=== PATIENT | male | born 1995 | race Caucasian/White ===

== ENCOUNTER 2021-07-01 08:16 | Emergency (ER) | payer OTHER, MEDICAID, SELFPAY ==
--- NOTE | ~2021-07-01 | US_ITS ---
EXAMINATION:US venous doppler LE LT INDICATION:Left leg pain TECHNIQUE: Multiple grayscale, color flow and Doppler images of the left lower extremity deep venous systems were obtained and reviewed. COMPARISON:No prior studies for comparison. FINDINGS: The common femoral, superficial femoral and popliteal veins demonstrate normal respiratory variation, augmentation and compressibility. Color flow is also seen within the posterior tibial, pe roneal, greater saphenous and profunda veins. IMPRESSION: 1: No lower extremity deep venous thrombosis. Reviewed, dictated and finalized at location A.
--- NOTE | ~2021-07-01 | XR_ITS ---
EXAMINATION: XR hip LT 2V w AP pelvis DATE: 07/01/2021 09:21 INDICATION: Left hip pain TECHNIQUE: Anteroposterior view of the pelvis and anteroposterior and frog-leg lateral views of the l eft hip were obtained. COMPARISON: None. FINDINGS: Alignment is normal. No fracture. Joint spaces are normal. Small phlebolith in the right hemipelvis. Soft tissues are unremarkable. IMPRESSION: 1. Negative left hip and pelvis radiographs. Reviewed, dictated and finalized at location A.
[2021-07-01 08:35] VITALS: BP 156/100; PULSE 111; RESP 20; TEMP 36.6; O2SAT 98
--- NOTE | 2021-07-01 09:10 | ED.GENADULT ---
HPI - General Adult General Chief complaint: Extremity Injury, Lower Stated complaint: left thigh pain Time Seen by Provider: 07/01/21 09:03 History of Present Illness HPI narrative: Patient with 26-year-old gentleman who presents the emergency department chief complaint of left thigh pain. Patient states for the last 3 days he said pain in the left inguinal area patient states the pain is worse with movement and improved with rest. Patient denies swelling denies trauma states that he is a type II diabetic and has not been taking medications for some time as he does not have a doctor currently patient denies fever denies chills reports that when he was a child he had fluid on his left hip in the past. Related Data Allergies Allergy/AdvReac Type Severity Reaction Status Date / Time No Known Allergies Allergy Verified 07/01/21 08:40 Review of Systems Review of Systems: A 10 system review of systems was completed on the patient and is negative except for what is stated in the HPI. Nursing and ancillary documentation was reviewed. Exam Narrative: GENERAL: Well-appearing, well-nourished, and in no acute distress. HEAD: Normocephalic, atraumatic. EYES: PERRLA and EOMI. ENT: Nares clear, no rhinorrhea or epistaxis. Mucous membranes moist. NECK: Supple. CHEST: Clear to auscultation. No respiratory distress. HEART: Regular rate and rhythm. No murmur heard. Normal peripheral pulses. ABDOMEN: Soft, nontender, nondistended, normal active bowel sounds. EXTREMITIES: Decreased range of motion of the left hip there is tenderness to palpation in the left inguinal region. No edema. SKIN: Warm, dry, no rash. NEURO: No focal deficits. Alert and oriented x3. PSYCH: Normal mood and affect. Course Vital Signs Vital signs: Vital Signs Temperature 36.6 C 07/01/21 08:35 Pulse Rate 111 H 07/01/21 08:35 Respiratory Rate 20 07/01/21 08:35 Blood Pressure 156/100 H 07/01/21 08:35 Pulse Oximetry 98 07/01/21 08:35 Temperature 36.6 C 07/01/21 08:35 Pulse Rate 111 H 07/01/21 08:35 Respiratory Rate 20 07/01/21 08:35 Blood Pressure 156/100 H 07/01/21 08:35 Pulse Oximetry 98 07/01/21 08:35 Medical Decision Making Vital Signs Vital Signs: Vital Signs Temperature 36.6 C 07/01/21 08:35 Pulse Rate 111 H 07/01/21 08:35 Respiratory Rate 20 07/01/21 08:35 Blood Pressure 156/100 H 07/01/21 08:35 Pulse Oximetry 98 07/01/21 08:35 Temperature 36.6 C 07/01/21 08:35 Pulse Rate 111 H 07/01/21 08:35 Respiratory Rate 20 07/01/21 08:35 Blood Pressure 156/100 H 07/01/21 08:35 Pulse Oximetry 98 07/01/21 08:35 Lab Data Result diagrams: 07/01/21 09:44 07/01/21 09:44 Labs: Lab Results 07/01/21 07/01/21 Range/Units 09:44 09:44 WBC 7.5 (4.5-10.0) K/mm3 RBC 5.06 (4.6-6.20) M/mm3 Hgb 16.8 (14.0-18.0) g/dL Hct 50.3 (42.0-52.0) % MCV 99.4 (80-100) fl MCH 33.2 (26-34) pg MCHC 33.4 (32-36) g/dl RDW 12.8 (11.5-14.5) % Plt Count 234 (150-375) k/mm3 MPV 9.1 (7.4-10.4) fl Immature Gran % (Auto) 1.1 H (0-0.5) % Neut % (Auto) 60.6 (45.5-73.1) % Lymph % (Auto) 23.6 (18.3-44.2) % [place] % (Auto) 10.7 H (2.6-8.5) % Eos % (Auto) 3.1 (0-4.4) % Baso % (Auto) 0.9 (0.2-1.2) % Lymph # (Auto) 1.78 (0.9-3.2) K/mm3 [place] # (Auto) 0.8 H (0.1-0.6) K/mm3 Eos # (Auto) 0.2 (0-0.3) K/mm3 Baso # (Auto) 0.1 (0.0-0.1) K/mm3 Abs Immat Gran (auto) 0.08 H (0.00-0.031) K/mm3 Absolute Neuts (auto) 4.6 (1.3-6.7) K/mm3 Absolute Nucleated RBC 0.0 (0.0-0.012) K/mm3 Nucleated RBC % 0.0 (0.0-0.2) % Sodium 140 (137-145) mmol/L Potassium 4.2 (3.4-5.0) mmol/L Chloride 102 (98-107) mmol/L Carbon Dioxide 27 (22-30) mmol/L Anion Gap 11 (8-16) mmol/L BUN 13 (9-20) mg/dL Creatinine 0.80 (0.7-1.3) mg/dL Estim Creat Clear Calc 194 ml/min Estimated GFR > 60 (59 - ) Glucose 1
[2021-07-01] MEDS: KETOROLAC 30 MG/ML VIAL (*BKC) IM (10:01)
[2021-07-01 10:03] LABS: Basophils Absolute Auto 0.1 K/mm3 (0.0-0.1); Basophils Percent Auto 0.9 % (0.2-1.2); Eosinophils Absolute Auto 0.2 K/mm3 (0-0.3); Eosinophils Percent Auto 3.1 % (0-4.4); Hematocrit 50.3 % (42.0-52.0); Hemoglobin 16.8 g/dL (14.0-18.0); Immature Granulocyte Absolute 0.08 K/mm3 (0.00-0.031); Immature Granulocyte Percent A 1.1 % (0-0.5); Lymphocytes Absolute Auto 1.78 K/mm3 (0.9-3.2); Lymphocytes Percent Auto 23.6 % (18.3-44.2); Mean Corpuscular HGB Conc 33.4 g/dl (32-36); Mean Corpuscular Hemoglobin 33.2 pg (26-34); Mean Corpuscular Volume 99.4 fl (80-100); Mean Platelet Volume 9.1 fl (7.4-10.4); Monocytes Absolute Auto 0.8 K/mm3 (0.1-0.6); Monocytes Percent Auto 10.7 % (2.6-8.5); Neutrophils Absolute Auto 4.6 K/mm3 (1.3-6.7); Neutrophils Percent Auto 60.6 % (45.5-73.1); Platelet Count Result 234 k/mm3 (150-375); Red Blood Count 5.06 M/mm3 (4.6-6.20); Red Cell Distribution Width 12.8 % (11.5-14.5); White Blood Count 7.5 K/mm3 (4.5-10.0)
[2021-07-01 10:16] LABS: Alanine Aminotransferase 76 U/L (4-50); Albumin Level 4.5 g/dL (3.5-5.1); Alkaline Phosphatase 62 U/L (38-126); Anion Gap 11 mmol/L (8-16); Aspartate Amino Transferase 68 U/L (17-59); Bilirubin,Total 0.9 mg/dL (0.2-1.3); Blood Urea Nitrogen 13 mg/dL (9-20); Calcium 9.2 mg/dL (8.4-10.2); Carbon Dioxide 27 mmol/L (22-30); Chloride 102 mmol/L (98-107); Estimated CRCL calculation 194 ml/min; Estimated Glomerular Filt Rate > 60; Glucose 135 mg/dL (65-110); Magnesium 2.2 mg/dL (1.6-2.3); Potassium 4.2 mmol/L (3.4-5.0); Sodium 140 mmol/L (137-145)
[2021-07-01 10:47] VITALS: BP 160/98; PULSE 102; RESP 19; O2SAT 97
== END 2021-07-01 10:48 | disposition home or self-care (01) ==
PROVIDERS: Emergency Provider Emergency Medicine
DX: M25.552 Pain in left hip (principal); E11.9 Type 2 diabetes mellitus without complications; Z91.14 Patient's other noncompliance with medication regimen
CPT/HCPCS: 36415; 73502; 80053; 83735; 85025; 93971; 96372; 99284; J1885

== ENCOUNTER 2021-09-09 10:25 | Outpatient (CLI) | payer BC, SELFPAY ==
[2021-09-09 11:15] LABS: Alanine Aminotransferase 93 U/L (4-50); Albumin Level 4.6 g/dL (3.5-5.1); Alkaline Phosphatase 72 U/L (38-126); Anion Gap 9 mmol/L (8-16); Aspartate Amino Transferase 65 U/L (17-59); Bilirubin,Total 0.6 mg/dL (0.2-1.3); Blood Urea Nitrogen 9 mg/dL (9-20); Calcium 9.3 mg/dL (8.4-10.2); Carbon Dioxide 26 mmol/L (22-30); Chloride 103 mmol/L (98-107); Cholesterol 206 mg/dL (0-200); Estimated Glomerular Filt Rate > 60; Glucose 138 mg/dL (65-110); HDL Direct 43 mg/dL; Potassium 4.3 mmol/L (3.4-5.0); Sodium 138 mmol/L (137-145); Triglycerides 260 mg/dL (<150)
[2021-09-09 11:16] LABS: Hemoglobin A1C 6.1 % (<5.7)
[2021-09-09 11:27] LABS: LDL Cholesterol Direct 135 mg/dL
[2021-09-09 11:42] LABS: Free T4 Free Thyroxine 1.02 ng/mL (0.78-2.19)
== END 2021-09-09 10:26 | disposition home or self-care (01) ==
LOC: ANHLAB 10:27
PROVIDERS: PCP Internal Medicine; Visit Provider Nurse Practitioner
DX: E11.9 Type 2 diabetes mellitus without complications (principal); E03.9 Hypothyroidism, unspecified
CPT/HCPCS: 36415; 80053; 80061; 83036; 84439; 84443

== ENCOUNTER 2021-10-28 11:24 | Outpatient (CLI) | payer BC, SELFPAY ==
--- NOTE | ~2021-10-28 | US_ITS ---
EXAMINATION: US abdomen limited EXAM DATE: 10/28/2021 12:00 INDICATION: Please do US of liver. abn liver function test . TECHNIQUE: Multiple grayscale and Doppler images of the abdomen right upper quadrant were obtained (b y a technologist who performed the scan) and subsequently reviewed. There is no prior study for jennifer epps. FINDINGS: The pancreatic head and body are normal in appearance. The pancreatic tail is not visualized. There is echogenic liver parenchyma with poor penetration, hepatic steatosis. There are no focal liver le sions identified. There is no evidence of intrahepatic biliary duct dilation. Portal venous flow w as seen in the hepatopedal, normal direction and has normal Doppler waveform. No right-sided hydrone phrosis. Common bile duct measures 5 mm, which is normal. The gallbladder wall is normal in thickness, with ex pected amount of distention. No sonographic evidence of pericholecystic fluid. There is no cholelit hiases. Technologist performing exam reports patient did not demonstrate sonographic Guzmán's sign. Please note that this sign is less reliable in patients who have received pain medication. IMPRESSION: 1. Hepatic steatosis. Reviewed, dictated and finalized at location A. [employer] IMPRESSION: 1. Hepatic steatosis.
== END 2021-10-28 11:25 | disposition home or self-care (01) ==
LOC: ANHIMG 11:27
PROVIDERS: PCP Internal Medicine; Visit Provider Nurse Practitioner
DX: R79.89 Other specified abnormal findings of blood chemistry (principal); K76.0 Fatty (change of) liver, not elsewhere classified
CPT/HCPCS: 76705

== ENCOUNTER 2022-09-17 07:30 | Emergency (ER) | payer BC, SELFPAY ==
--- NOTE | ~2022-09-17 | XR_ITS ---
XR femur LT min 2V DATE: 09/17/2022 08:36 INDICATION: Left mid thigh pain TECHNIQUE: AP and lateral views of left femur COMPARISON: None FINDINGS: No fracture or dislocation, periosteal reaction or bone destruction of the left femur. Norm al alignment and preservation of joint spaces at the left hip and left knee. IMPRESSION: Negative Reviewed, dictated and finalized at location B. M OVEN OPERATOR IMPRESSION: Negative
--- NOTE | ~2022-09-17 | XR_ITS ---
XR hip LT 2V w AP pelvis DATE: 09/17/2022 08:36 INDICATION: Left hip and mid thigh pain TECHNIQUE: AP pelvis. AP, lateral views of left hip COMPARISON: None FINDINGS: No pelvic fracture or bone destruction. The pubic symphysis and sacroiliac joints are intac t. Hip joint spaces are symmetric and well preserved. No fracture or dislocation, avascular necrosis or bone destruction of the left hip. IMPRESSION: Negative Reviewed, dictated and finalized at location B. ONHOLE MAKER HAND IMPRESSION: Negative
[2022-09-17 07:36] VITALS: BP 142/81; PULSE 101; RESP 18; TEMP 36.4; O2SAT 97
--- NOTE | 2022-09-17 08:03 | ED.EXTPRO ---
HPI - Extremity Problem General Chief complaint: Extremity Problem,Nontraumatic Stated complaint: left thigh pain Time Seen by Provider: 09/17/22 07:58 Source: patient and RN notes reviewed History of Present Illness HPI Narrative: 27 years old white male, came by private car complaining of pain at the mid left thigh started 2 weeks ago, did not take any medication yet. Patient denies any trauma. Patient had similar history 1 year ago and got better on Flexeril. Unknown etiology. He denies any fevers chills nausea vomiting. Gets worse with certain movement of the left lower extremity, better at rest, not painful with palpation. Patient is telling me that he ran out of metformin and currently in between physicians. Related Data Allergies Allergy/AdvReac Type Severity Reaction Status Date / Time No Known Allergies Allergy Verified 09/17/22 07:31 Review of Systems Review of Systems: All systems reviewed & are unremarkable except as noted in HPI and below PMFSH Past Medical History Medical History Adult hypothyroidism LAISHA (obstructive sleep apnea) Type 2 diabetes mellitus Surgical History Surgical History History of tonsillectomy Family History Family History Father Alcohol abuse Depression Mother Depression Cerebrovascular accident Heart disease Lupus White matter disease Social History Social History Smoking packs per day: 0.5 Smoking cigarettes per day: 10.0 Years smoked: 10 Smoking pack-years: 5.00 Tobacco type: cigarettes Alcohol intake: current Alcohol use details: socially Substance use: current Substance use type: marijuana Additional occupation/education comments: in trade school for [employer] Exam Narrative: General appearance: Well-developed, well-nourished Skin: Normal color Head: Normocephalic, nontraumatic Eyes: Clear conjunctiva ENT: Oropharynx normal, ears normal, nose normal Neck: Supple, nontender Chest and respiratory: Airway patent, no respiratory distress, no accessory muscle use Heart: Regular rate/rhythm Abdomen: Soft, nontender, no organomegaly, quiet bowel sounds Vascular: Normal peripheral pulses, normal capillary refill. Musculoskeletal: Normal range of motion, nontender back Neurologic: Alert and oriented ?3, THERMOSTAT MECHANIC is normal as tested, no gross motor deficit Course Vital Signs Vital signs: Vital Signs Temperature 36.4 C L 09/17/22 07:36 Pulse Rate 101 H 09/17/22 07:36 Respiratory Rate 18 09/17/22 07:36 Blood Pressure 142/81 H 09/17/22 07:36 Pulse Oximetry 97 09/17/22 07:36 Oxygen Delivery Room Air 09/17/22 07:36 Temperature 36.4 C L 09/17/22 07:36 Pulse Rate 101 H 09/17/22 07:36 Respiratory Rate 18 09/17/22 07:36 Blood Pressure 142/81 H 09/17/22 07:36 Pulse Oximetry 97 09/17/22 07:36 Oxygen Delivery Room Air 09/17/22 07:36 MDM - Extremity (Nontraumatic) Imaging Data Radiologist's impression: Impressions Hip/Pelvis X-Ray 09/17/22 08:43 IMPRESSION: Negative Femur X-Ray 09/17/22 08:45 IMPRESSION: Negative Critical Care Time Critical Care Time Critical Care Time: No Discharge Plan Discharge Clinical Impression: Muscle pain, Type 2 diabetes mellitus Patient Disposition: Home, Self-Care Condition: Stable Instructions: Antibiotic Form, Leg Pain (ED), Type 2 Diabetes in the Older Adult (ED) Additional Instructions: Return if symptoms are worsening , call your family
== END 2022-09-17 09:15 | disposition home or self-care (01) ==
PROVIDERS: Emergency Provider Emergency Medicine; PCP Internal Medicine
DX: M79.18 Myalgia, other site (principal); E11.9 Type 2 diabetes mellitus without complications; E03.9 Hypothyroidism, unspecified; G47.33 Obstructive sleep apnea (adult) (pediatric); F17.210 Nicotine dependence, cigarettes, uncomplicated; Z79.84 Long term (current) use of oral hypoglycemic drugs
CPT/HCPCS: 73502; 73552; 99284

== ENCOUNTER 2023-06-07 15:18 | Emergency (ER) | payer BC, OTHER, SELFPAY ==
[2023-06-07 16:01] VITALS: BP 134/79; PULSE 91; RESP 18; TEMP 36.3; O2SAT 98
--- NOTE | 2023-06-07 18:12 | PC.NURSE ---
patient called from waiting room at 1801 and 1811 with no answer. patient left without being seen
== END 2023-06-07 18:11 | disposition left against medical advice (07) ==
DX: M79.661 Pain in right lower leg (principal)
CPT/HCPCS: 99199

== ENCOUNTER 2025-08-22 13:38 | Emergency (ER) | payer OTHER, SELFPAY ==
--- OUTSIDE RECORDS SUMMARY | 2005-11-01 02:22 | XMS_ITS | Continuity of Care Document ---
Author Organization [facility] Address [address] [facility] [place] [address] Phone Care Team Providers Care Electrician Wiring Name Role Phone Michael Falk Jr, MD Unavailable Unavailabl e Medications Medication Instructions Dosage Effective Dates (start - stop) Status Comments amoxicillin 250 mg/5 mL Oral Susp 1 TSP PO TID X 10 - Active DYTAN-CS 30-7.5-25ORAL SUSP 1 TSP PO BID PRN COUGH OR CONGESTION - Active Zoloft 25 mg Tab Take one tablet by mouth daily - Active Concerta 54 mg 24 hr Tab Take one tablet by mouth daily - Active Methylin 5 mg Tab As Directed - Active Combivent 18 mcg-103 mcg/Actuation Aerosol Inhaler Inhale two times by mouth every eight hours - Active FLOVENT 44MCGAER W/ADAP 4 puffs BID - Active Advance Directives Directive Yes / No Effective Date File Name No Information Encounters Encounter Description Practice Location Reason(s) For Visit Diagnoses Date Provider Providers Copied on Encounter [facility], [address] [facility] [place], [id number], [place] tel:[phone] [facility] Information Deya Rodriguez. [address] [facility] [place], [id number], [place]. tel:[phone] [facility], [address] [facility] [place], [id number], [place] tel:[phone] [facility] cough (chief complaint)s ore throat (chief complaint) No Information Elizabet YUE Tripp. [address] [facility] [place], [id number], [place]. tel:[phone] [facility], [address] [facility] [place], [id number], [place] tel:[phone] [facility] L eye redness/swe lling (chief complaint) No Information No Information [facility], [address] [place] [address] [place]onso, , [id number], [place] tel:[phone] [facility] No Information Deya Rodriguez. [address] [facility] [place] [id number], [place]. tel:[phone] [facility], [address] [place] [address] [place], [id number], [place] tel:[phone] [facility] add (chief complaint)a sthma (chief complaint) No Information [facility]ya Rodriguez. [address] [facility] , [id number], [place]. [phone] Family History Family Member Type Diagnosis Age At Onset No Information Payers Payer name Insurance type Covered alliance party ID Authoriza tion(s) No Information Social History Type Description Quantity Date Captured Comments Sex Male Smoking Status No Information Chief Complaint And Reason For Visit No Information Reason For Referral Reason For Referral No Information History Of Present Illness Encounter Date Complaint History Of Prese nt Illness No Information Functional Status Date Functional Assessmen t No Information Instructions Date Instruction Additional Infor mation No Information Assessments Type Assessment Date No Information Patient Care Teams Name Effective Dates (start - stop) Status Members No Information
--- OUTSIDE RECORDS SUMMARY | 2005-11-01 02:22 | XMS_ITS | Continuity of Care Document ---
Author Organization [facility] Address [address] [facility] [place] [address] Phone Care Team Providers Care Boat Ride Operator Name Role Phone Michael Falk Jr, MD [...] Diagnoses Date Provider Providers Copied on Encounter [facility], [address] [facility] [place], [id number], [place] tel:[phone] [facility] Information Deya Rodriguez. [address] [facility] [place], [id number], [place]. tel:[phone] [facility], [address] [facility] [place], [id number], [place] tel:[phone] [facility] cough (chief complaint)s ore throat (chief complaint) No Information Elizabet YUE Tripp. [address] [facility] [place], [id number], [place]. tel:[phone] [facility], [address] [facility] [place], [id number], [place] tel:[phone] [facility] L eye redness/swe lling (chief complaint) No Information No Information [facility], [address] [place] [address] [place]onso, , [id number], [place] tel:[phone] [facility] No Information [facility] Rodriguez. [address] [facility] [place], [id number], [place]. tel:[phone] [facility], [address] [place] [address] [place], [id number], [place] tel:[phone] [facility] add (chief complaint)a sthma (chief complaint) No Information Deya Rodriguez. [address] [facility] , [id number], [place]. [phone] Family History Family Member Type Diagnosis Age [...]
[2025-08-22 13:44] VITALS: BP 167/81; PULSE 91; RESP 20; TEMP 36.6; O2SAT 94
[2025-08-22 14:24] LABS: EDSTREPNEGPOS1 Negative (Negative)
--- NOTE | 2025-08-22 14:28 | ED.URI ---
HPI - URI/Sore Throat General Chief Complaint: Upper Respiratory Infection Stated Complaint: sore throat/ear Time Seen by Provider: 08/22/25 14:22 Source: patient and RN notes reviewed Mode of arrival: ambulatory Limitations: no limitations History of Present Illness HPI Narrative: 30-year-old male patient with history of hypothyroidism and diabetes presents today a 3 day history of sore throat and right ear pain that developed today. Denies fever, shortness breath. He has been taking Robitussin home with some mild relief and currently rates his pain 6/10. Does report a sick contact with his nephew that has an ear infection. Related Data Home Medications ?Medication ?Instructions ?Recorded ?Confirmed ?Last Taken ?Type lamotrigine 100 mg tablet mg 08/22/25 Unknown History Allergies Allergy/AdvReac Type Severity Reaction Status Date / Time pollen extracts Allergy Sneezing Verified 08/22/25 13:42 [facility] Past Medical History Medical History LAISHA (obstructive sleep apnea) Adult hypothyroidism Type 2 diabetes mellitus Surgical History Surgical History History of tonsillectomy Family History Family History Father Alcohol abuse Depression Mother Depression Cerebrovascular accident Heart disease Lupus White matter disease Social History Social History Smoking packs per day: 0.5 Smoking cigarettes per day: 10.0 Years smoked: 10 Smoking pack-years: 5.00 Tobacco type: cigarettes Smoking end date: 04/14/24 Alcohol intake: current Alcohol use details: socially Substance use: current Substance use type: marijuana Lack of Transportation: No Lack of Food: Sometimes True Current Housing: I Have Housing Concerned About Future Housing: No Difficulty Paying Gas/Electric Bills: No Difficulty Paying for Meds: No Currently Unemployed: No Education: High School Diploma/GED Difficulty w/ Childcare or Family Care: No Living arrangements: with family Occupation/Education: unemployed Additional occupation/education comments: in trade school for [employer] Comments At time of signature, I have reviewed and agree with nursing past medical, surgical, social and family history unless otherwise noted. Please see nursing chart for further information. There is no relevant family history pertinent to the presenting complaint Exam Narrative: GENERAL: Well-appearing, well-nourished, and in no acute distress. HEAD: Normocephalic, atraumatic. EYES: EOMI. No redness or drainage. Conjunctivae normal. ENT: Mucous membranes pink and moist. Nares congested. No rhinorrhea. TMs normal bilaterally. Throat erythematous and mildly edematous without exudate. Uvula midline. NECK: Normal AROM. Supple. Bilateral anterior cervical chain lymphadenopathy. CHEST: No respiratory distress. Clear to auscultation. HEART: Regular rate and rhythm. No murmur appreciated. EXTREMITIES: Normal range of motion. No edema. SKIN: Warm, dry, no rash. Capillary refill normal. Normal skin turgor. NEURO: No focal deficits. Alert and oriented x3. Gait steady. PSYCH: Normal affect. No signs of depression or anxiety. Course Course Level of Care: Express Care Visit Vital Signs Vital signs: Vital Signs Temperature 97.9 F 08/22/25 13:44 Pulse Rate 91 08/22/25 13:44 Respiratory Rate 20 08/22/25 13:44 Blood Pressure 167/81 H 08/22/25 13:44 Pulse Oximetry 94 08/22/25 13:44 Oxygen Delivery Room Air 08/22/25 13:44 Temperature 97.9 F 08/22/25 13:44 Pulse Rate 91 08/22/25 13:44 Respiratory Rate 20 08/22/25 13:44 Blood Pressure 167/81 H 08/22/25 13:44 Pulse Oximetry 94 08/22/25 13:44 Oxygen Delivery Room Air 08/22/25 13:44 Reviewed MDM - URI/Sore Throat MDM Narrative Medical decision making narrative: 30-year-old male patient with history of hypothyroidism and diabetes presents today a 3 day history of sore throat and right ear pain that developed today. Denies fever, shortness breath. He has been taking Robitussin home with some mild relief and currently rates his pain 6/10. Upon exam, patient has some mild nasal congestion and erythema and mild edema to the throat. Rapid strep negative. Culture pending. Symptoms likely viral in etiology. Discussed [id number]-[id number] medication use and duration of illness. No prescription medications indicated at this time. Anticipatory guidance given. Vital signs stable mildly elevated blood pressure. Patient agrees with plan. Differential Diagnosis Differential diagnosis: Likely upper respiratory infection, otitis media, viral infection, pharyngitis and other (Strep throat) Lab Data Attestation: I reviewed the patient's lab results. Labs: Lab Results 08/22/25 Range/Units 13:52 POC Grp A Strep Screen Negative (Negative) Critical Care Time Critical Care Time Critical Care Time: No Discharge Plan Discharge Clinical Impression: Upper respiratory infection Qualifiers: URI type: unspecified URI Qualified Code(s): J06.9 - Acute upper respiratory infection, unspecified Patient Disposition: Home Condition: Stable Instructions: Upper Respiratory Infection (DC) Additional Instructions: Your rapid strep swab was negative today at [facility]. You will be notified in a few days if the culture comes back positive for strep, and appropriate antibiotics will be called in for you at that time. Your symptoms are likely due to a viral illness, which is not treated with antibiotics. Viral symptoms can be present for up to 7-10 days. Take Tylenol or ibuprofen for fever or pain. Rest and stay hydrated. Follow up with your PCP in 7 days if symptoms are not improving. Go to the ER immediately if you have any difficulty breathing or swallowing. Patient Language: Burkinan Prescriptions: No Action lamotrigine 100 mg tablet albuterol sulfate 90 mcg/actuation HFA aerosol inhaler 2 inh inhalation Q4H PRN (Reason: shortness of breath or wheezing) Qty: 8.5 0RF metformin 500 mg tablet 500 mg PO BID Qty: 60 5RF duloxetine 60 mg capsule,delayed release(DR/EC) 60 mg PO DAILY Qty: 30 5RF Follow-up/Referrals: PHYSICIAN,MARINE INSURANCE CLAIM EXAMINER [Primary Care Provider, Internal Medicine] Stand Alone Forms: Work/School Release IP Time of Disposition: 14:31
--- OUTSIDE RECORDS SUMMARY | 2025-08-22 20:11 | XMS_ITS | Clinical Summary ---
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 Gender Identity Not on file Sexual Orientation Not on file Plan of Treatment Health Maintenance Due Date Last Done Comments Hepatitis C Virus (HCV) Screening 1995 TdaP Immunization 1995 Hepatitis B Immunization (1 of 3 - 19+ 3-dose series) 2014 Human Papillomavirus (HPV) Immunization (1 - 3-dose SCDM series) 2022 Influenza Immunization (#1) 2025 SARS-COV-2 Immunization ( season) 2025 Respiratory Syncytial Virus (RSV) Immunization (Adult) (1 - 1-dose 75+ series) 2070 Meningococcal Immunization (ACWY) Aged Out No longer eligible based on patient's age to complete this topic Pneumococcal Immunization Combined Aged Out No longer eligible based on patient's age to complete this topic Rotavirus Immunization Aged Out No lo nger eligible based on patient's age to complete this topic
== END 2025-08-22 14:36 | disposition home or self-care (01) ==
PROVIDERS: Emergency Provider Nurse Practitioner
DX: J06.9 Acute upper respiratory infection, unspecified (principal); E03.9 Hypothyroidism, unspecified; E11.9 Type 2 diabetes mellitus without complications; F17.210 Nicotine dependence, cigarettes, uncomplicated
CPT/HCPCS: 87081; 87880; 99213; G0463

== ENCOUNTER 2025-09-10 18:22 | Emergency (ER) | payer OTHER, SELFPAY ==
--- OUTSIDE RECORDS SUMMARY | 2005-11-01 02:22 | XMS_ITS | Continuity of Care Document ---
Author Organization [facility] Address [address] [facility] [place] [address] Phone Care Team Providers Care Systems Integration Analyst Name Role Phone Michael Falk Jr, MD [...] Diagnoses Date Provider Providers Copied on Encounter [facility], [address] [facility] [place], [id number], [place] tel:[phone] [facility] Information Deya Rodriguez. [address] [facility] [place], [id number], [place]. tel:[phone] [facility], [address] [facility] [place], [id number], [place] tel:[phone] [facility] cough (chief complaint)s ore throat (chief complaint) No Information Elizabet YUE Tripp. [address] [facility] [place], [id number], [place]. tel:[phone] [facility], [address] [facility] [place], [id number], [place] tel:[phone] [facility] L eye redness/swe lling (chief complaint) No Information No Information [facility], [address] [place] [address] [place]onso, , [id number], [place] tel:[phone] [facility] No Information [facility] Rodriguez. [address] [facility] [place] [id number], [place]. tel:[phone] [facility], [address] [place] [address] [place], [id number], [place] tel:[phone] [facility] add (chief complaint)a sthma (chief complaint) No Information [facility]ya Rodriguez. [address] [facility] , [id number], [place]. [phone] Family History Family Member Type Diagnosis Age At Onset No Information Payers Payer name Insurance type Covered constitution party ID Authoriza tion(s) No Information Social [...]
--- NOTE | 2025-09-10 18:24 | ED_ITS ---
HPI - URI/Sore Throat General Chief Complaint: Upper Respiratory Infection Stated Complaint: Sore Throat/Ear Pain Time Seen by Provider: 09/10/25 18:23 Source: patient Mode of arrival: ambulatory Limitations: no limitations History of Present Illness HPI Narrative: Aly is a 30 year old female patient presenting to the clinic today with c/o sore throat, nasal congestion, and ear pain x3 weeks. He reports he was seen on 08/22/25 and dx with pharyngitis. Denies any fevers, chills, body aches, chest pain, or shortness of breath. Related Data Home Medications ?Medication ?Instructions ?Recorded ?Confirmed ?Last Taken ?Type lamotrigine 100 mg tablet mg 08/22/25 Unknown History Allergies Allergy/AdvReac Type Severity Reaction Status Date / Time pollen extracts Allergy Sneezing Verified 09/10/25 18:34 Review of Systems Review of Systems: Pertinent positives per HPI. Patient denies any fever, chills, rash, headache, visual changes, dizziness, cough, runny nose, sore throat, shortness of breath, chest pain, palpitations, nausea, vomiting, diarrhea, constipation, abdominal pain, or any urinary issues. [facility] Past Medical History Medical History LAISHA (obstructive sleep apnea) Adult hypothyroidism Type 2 diabetes mellitus Surgical History Surgical History History of tonsillectomy Family History Family History Father Alcohol abuse Depression Mother Depression Cerebrovascular accident Heart disease Lupus White matter disease Social History Social History Smoking packs per day: 0.5 Smoking cigarettes per day: 10.0 Years smoked: 10 Smoking pack-years: 5.00 Smoking status: Former smoker Tobacco type: cigarettes Smoking end date: 04/14/24 Alcohol intake: current Alcohol use details: socially Substance use: current Substance use type: marijuana Lack of Transportation: No Lack of Food: Sometimes True Current Housing: I Have Housing Concerned About Future Housing: No Difficulty Paying Gas/Electric Bills: No Difficulty Paying for Meds: No Currently Unemployed: No Education: High School Diploma/GED Difficulty w/ Childcare or Family Care: No Living arrangements: with family Occupation/Education: unemployed Additional occupation/education comments: in trade school for [employer] Comments At the time of my signature, I reviewed and agree with the nursing past medical, surgical, social, and family history. There is no relevant family history pertinent to the patient complaint. Exam Narrative: General: Well-developed, morbidly obese, in no apparent distress Head: Normocephalic, atraumatic Eyes: Pupils equally round and reactive to light bilaterally, EOM intact, sclera and conjunctive clear, no discharge, lids normal Ears: TMs intact, bulging, red, ear canals clear, no drainage, grossly hearing normal. Nose: Nares patent, yellow nasal discharge, moderate inflammation, no sinus tenderness. Mouth: Oropharynx red without lesions or masses, good dentition, MMM. Postnasal drip Neck: Supple, trachea midline, no enlargement of anterior or posterior cervical nodes, no thyroid masses or goiter palpable. Cardio: Regular rate and rhythm, s1 and s2 normal, no murmur appreciated. Resp: Clear to auscultation bilaterally anteriorly and posteriorly, no rhonchi, rales, wheezing or rubs Course Course Emergency Course: Portions of this record may have been created with voice recognition software. Level of Care: Express Care Visit Vital Signs Vital signs: Vital Signs Temperature 37.1 C 09/10/25 18:28 Pulse Rate 102 H 09/10/25 18:28 Respiratory Rate 20 09/10/25 18:28 Blood Pressure 145/78 H 09/10/25 18:28 Pulse Oximetry 95 09/10/25 18:28 Oxygen Delivery Room Air 09/10/25 18:28 Temperature 37.1 C 09/10/25 18:28 Pulse Rate 102 H 09/10/25 18:28 Respiratory Rate 20 09/10/25 18:28 Blood Pressure 145/78 H 09/10/25 18:28 Pulse Oximetry 95 09/10/25 18:28 Oxygen Delivery Room Air 09/10/25 18:28 Vital signs reviewed MDM - URI/Sore Throat MDM Narrative Medical decision making narrative: At the time of visit patient is resting comfortably on the exam table. Patient appears to be nontoxic. c/o sore throat, nasal congestion, and ear pain x3 wee ks. He reports he was seen on 08/22/25 and dx with pharyngitis. Denies any fevers, chills, body aches, chest pain, or shortness of breath. On exam patient has bilateral TMs intact, bulging, red, yellow nasal drainage, mild anterior turbinate inflammation, oral pharynx mildly red with postnasal drip, no sinus tenderness, rates regular rate and rhythm, lung sounds are clear. Plan: I suspect patient has bilateral otitis media. Prescription for amoxicillin was sent to the pharmacy. Supportive measures were discussed with the patient and they voiced understanding discharge instructions and agrees to treatment plan. Return precautions reviewed Differential Diagnosis Differential diagnosis: Likely upper respiratory infection, otitis media, sinusitis, viral infection, bronchitis, influenza, pharyngitis and other (COVID) Lab Data Labs: Lab Results 09/10/25 Range/Units 18:32 POC Grp A Strep Screen Negative (Negative) Discharge Plan Discharge Clinical Impression: Bilateral acute otitis media Pharyngitis Qualifiers: Pharyngitis/tonsillitis etiology: unspecified etiology Qualified Code(s): J02.9 - Acute pharyngitis, unspecified Patient Disposition: Home Condition: Stable Instructions: Antibiotic Form, Pharyngitis (ED), Ear Infection (ED) Additional Instructions: Strep test is negative in the clinic today. Take any prescribed medications only as directed-amoxicillin Tylenol/motrin as needed for pain May use heating pad to alleviate pain If you get recurrent ear infections it may be warranted to follow up with ENT. Follow up with your PCP in 3-5 days if symptoms persist. Patient Language: [place] Prescriptions: New amoxicillin 875 mg tablet 875 mg PO Q12H 7 Days Qty: 14 0RF albuterol sulfate 90 mcg/actuation HFA aerosol inhaler 2 puff inhalation Q4-6H PRN (Reason: shortness of breath or wheezing) 30 Days Qty: 8.5 0RF No Action lamotrigine 100 mg tablet Follow-up/Referrals: UNKNOWN,DOCTOR [Non-Staff] Time of Disposition: 18:45 Quality NIHSS Nursing Documentation ED NIHSS nursing documentation: reviewed/agree
--- OUTSIDE RECORDS SUMMARY | 2025-09-10 18:27 | XMS_ITS | Clinical Summary ---
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
[2025-09-10 18:28] VITALS: BP 145/78; PULSE 102; RESP 20; TEMP 37.1; O2SAT 95
[2025-09-10 18:47] LABS: EDSTREPNEGPOS1 Negative (Negative)
== END 2025-09-10 18:53 | disposition home or self-care (01) ==
PROVIDERS: Emergency Provider Nurse Practitioner Family
DX: H66.93 Otitis media, unspecified, bilateral (principal); J02.9 Acute pharyngitis, unspecified; Z87.891 Personal history of nicotine dependence; F12.90 Cannabis use, unspecified, uncomplicated; E11.9 Type 2 diabetes mellitus without complications; E03.9 Hypothyroidism, unspecified
CPT/HCPCS: 87880; 99213; G0463